=== PATIENT | female | born 2000 | race Caucasian/White ===

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

== ENCOUNTER 2019-02-21 20:39 | Inpatient (IN) ==
[2019-02-21 21:43] LABS: Basophils # (auto) 0.03 K/uL (0-0.2); Basophils % (auto) 0.4 %; Eosinophils # (auto) 0.09 K/uL (0-0.5); Eosinophils % (auto) 1.1 %; Hematocrit (blood only) 41.3 % (37-47); Hemoglobin 13.5 g/dL (12.0-16.0); Immature Granulocytes # (auto) 0.02 K/uL (0.00-0.02); Immature Granulocytes % (auto) 0.3 %; Lymphocytes # (auto) 2.17 K/uL (1.2-3.4); Lymphocytes % (auto) 27.5 %; Mean Corpuscular Hemoglobin 28.9 pg (25-34); Mean Corpuscular Hgb Conc 32.7 g/dL (32-36); Mean Corpuscular Volume 88.4 fL (80-100); Mean Platelet Volume 9.4 fL (7.4-10.4); Monocytes # (auto) 0.55 K/uL (0.11-0.59); Neutrophils # (auto) 5.04 K/uL (1.4-6.5); Neutrophils % (auto) 63.7 %; Platelet Count 247 K/uL (130-400); RDW Standard Deviation 45.5 fL (36.4-46.3); Red Blood Count 4.67 M/uL (4.2-5.4)
[2019-02-21 22:03] LABS: Alanine Aminotransferase 22 U/L (12-78); Albumin Level 4.1 gm/dl (3.4-5.0); Aspartate Aminotransferase 15 U/L (15-37); BUN Creatinine Ratio 12.4 (10-20); Blood Urea Nitrogen 11 mg/dl (7-18); Calcium 9.3 mg/dl (8.5-10.1); Carbon Dioxide 22 mmol/L (21-32); Chloride 109 mmol/L (98-107); Est GFR (African American) 106.7; Glucose 89 mg/dl (70-99); Potassium 3.7 mmol/L (3.5-5.1); Sodium 138 mmol/L (136-145)
[2019-02-21 22:08] LABS: Salicylate < 1.7 mg/dl (2.8-20)
[2019-02-21 22:09] LABS: Acetaminophen < 2 ug/ml (10-30)
[2019-02-21 22:13] LABS: Alkaline Phosphatase 132 U/L (45-117); Bilirubin,Total 0.2 mg/dl (0.2-1); Total Protein 8.1 gm/dl (6.4-8.2)
[2019-02-21 22:27] LABS: Appearance Urine Clear (Clear); Bilirubin Urine Negative (Negative); Blood Urine Negative (Negative); Color Urine Yellow; Glucose Urine UA Negative (Negative); Ketones Urine Trace (Negative); Leukocyte Esterase Urine Negative (Negative); Nitrite Urine Negative (Negative); Protein Urine Negative (Negative); Urobilinogen Urine Negative (Negative)
[2019-02-21 22:46] LABS: Amphetamines+Metham, Urine Neg (Neg); Barbiturates, Urine Neg (Neg); Benzodiazepine, Urine Neg (Neg); Cocaine, Urine Neg (Neg); MDMA (Ecstacy), Urine Neg (Neg); Methadone, Urine Neg (Neg); Opiate, Urine Neg (Neg); Phencyclidine, Urine Neg (Neg)
--- NOTE | 2019-02-21 23:07 | Emergency Department Note ---
Entered by Ladonna eJrome acting as a scribe for Gary Valiente M.D. History of Present Illness General Chief complaint: Mental Health Evaluation Stated complaint: MENTAL HEALTH EVALUATION Time Seen by Provider: 02/21/19 20:57 Source: patient History of Present Illness Onset (ago): hour(s) (today) Location: head, upper extremity and lower extremity Pain Consistency: + intermittent Quality: + other (mental health evaluation) Associated symptoms: + other (Positive SI (without a plan), anxiousness, sadness, irregular sleeping schedule, irregular eating habits. Negative HI or hallucinations) The patient is a 18 year old female who presents to the ED for a mental health evaluation. She states she has had intermittent suicidal thoughts which worsened today. She states her mood is off and she feels very sad. She notes her sleep schedule and eating habits are irregular. She reports she feels very anxious. She has not attempted to hurt herself. The patient has not thought of how she would hurt herself. She states whenever she has suicidal thoughts, she cannot focus on anything else. She sees a counselor every week and has a psychiatrist. She states she has always tried to get help in the past, but for the past 4 years she has had frequent suicidal thoughts. The patient regularly takes prozac, lamictal, and topamax. She has never had in patient treatment in the past. She denies any HI or hallucinations. Home Medications Home Medications Medication Instructions Recorded Confirmed Type fluoxetine [Prozac] 20 mg PO HS 02/21/19 02/21/19 History lamotrigine [Lamictal] 50 mg PO HS 02/21/19 02/21/19 History topiramate [Topamax] 100 mg PO HS 02/21/19 02/21/19 History Allergies Allergy/AdvReac Type Severity Reaction Status Date / Time No Known Allergies Allergy Unverified 05/12/17 18:14 Past Med/Surg History Medical History Anxiety Depression Surgical History No pertinent past surgical history Family History Other No pertinent family history in first degree relatives Social History Feels Safe at Home: Yes Smoking Status: Never smoker Review of Systems See HPI for pertinent positives & negatives. and A total of 10 systems reviewed and were otherwise negative Physical Exam Vital Signs Vital Signs - 24 hr 02/21/19 20:43 02/21/19 23:39 Temperature 36.7 C Temperature Source Oral Pulse Rate 91 H Pulse Rate [Finger] 63 Respiratory Rate 16 16 Respiratory Effort / Characteristics Non-Labored Respiratory Depth Normal Blood Pressure 118/78 Blood Pressure [Right Arm] 118/59 L Blood Pressure Mean 91 Blood Pressure Mean [Right Arm] 78 Blood Pressure Position Sitting Blood Pressure Position [Right Arm] Sitting Pulse Oximetry 100 100 Oxygen Delivery Method Room Air Room Air Sepsis Recent Fever Within 48 Hours No Sepsis New/Unexplained Change in Mental Status No Sepsis Action Taken by Nursing No Action Required GENERAL: Awake, alert, on bed anxious HENT: Normocephalic, atraumatic. EYES: Normal conjunctiva. Sclera non-icteric. RESPIRATORY: Clear to auscultation. No wheezes. Normal respiratory effort. CARDIAC: Normal rate. Normal rhythm. Extremities warm and well perfused. NEURO: Normal sensorium. No sensory or motor deficits noted. No facial droop or slurred speech. PSYCH: Flat affect. Mildly anxious. Suicidal thoughts. Denies plan. Denies hallucinations or HI. SKIN: Warm and dry. No jaundice noted. Course Course 2113: Past medical records reviewed. The patient was evaluated in room A8. A complete history and physical exam was performed. Administered Medications Medical Decision Making Differential Diagnosis Differential diagnosis: Etiologies such as mood disorder, infection, hypoglycemia, electrolyte abnormalities, cardiac sources, intracerebral event, toxicologic, neurologic, as well as others were entertained. Medical Records Attestation: I reviewed the patient's medical records. Home Medications Current Medication List: was personally reviewed by me Laboratory Data Attestation: I reviewed the patient's lab results. Result diagrams: 02/21/19 21:29 02/21/19 21:28 Lab Results 02/21/19 02/21/19 02/21/19 Range/Units 20:50 20:50 20:50 WBC (4.8-10.8) K/uL RBC (4.2-5.4) M/uL Hgb (12.0-16.0) g/dL Hct (37-47) % MCV (80-100) fL MCH (25-34) pg MCHC (32-36) g/dL RDW Std Deviation (36.4-46.3) fL RDW Coeff of Eugenie (11.5-14.5) % Plt Count (130-400) K/uL MPV (7.4-10.4) fL Immature Gran % (Auto) % Neut % (Auto) % Lymph % (Auto) % [place] % (Auto) % Eos % (Auto) % Baso % (Auto) % Immature Gran # (Auto) (0.00-0.02) K/uL Neut # (Auto) (1.4-6.5) K/uL Lymph # (Auto) (1.2-3.4) K/uL [place] # (Auto) (0.11-0.59) K/uL Eos # (Auto) (0-0.5) K/uL Baso # (Auto) (0-0.2) K/uL Sodium (136-145) mmol/L Potassium (3.5-5.1) mmol/L Chloride (98-107) mmol/L Carbon Dioxide (21-32) mmol/L Anion Gap (3-11) BUN (7-18) mg/dl Creatinine (0.6-1.2) mg/dl Est Cr Clr Drug Dosing Est GFR ( Amer) Est GFR (Non-Af Amer) BUN/Creatinine Ratio (10-20) Glucose (70-99) mg/dl Calcium (8.5-10.1) mg/dl Total Bilirubin (0.2-1) mg/dl AST (15-37) U/L ALT (12-78) U/L Alkaline Phosphatase (45-117) U/L Total Protein (6.4-8.2) gm/dl Albumin (3.4-5.0) gm/dl Globulin (2.5-4.0) gm/dl Albumin/Globulin Ratio (0.9-2) TSH (0.300-4.500) uIu/ml Urine Color Yellow Urine Appearance Clear (Clear) Urine pH 6.0 (4.5-7.5) Ur Specific [place] 1.020 (1.000-1.030) Urine Protein Negative (Negative) Urine Glucose (UA) Negative (Negative) Urine Ketones Trace H (Negative) Urine Blood Negative (Negative) Urine Nitrite Negative (Negative) Urine Bilirubin Negative (Negative) Urine Urobilinogen Negative (Negative) Ur Leukocyte Esterase Negative (Negative) POC Ur Test NEG (NEG) Salicylates (2.8-20) mg/dl Urine Opiates Screen Neg (Neg) Ur Methadone, Qual Neg (Neg) Acetaminophen (10-30) ug/ml Urine Barbiturates Neg (Neg) Ur Phencyclidine (PCP) Neg (Neg) U Amphetamin/Meth Scrn Neg (Neg) MDMA (Ecstasy) Screen Neg (Neg) U Benzodiazepines Scrn Neg (Neg) Ur Cocaine Metabolite Neg (Neg) U Marijuana (THC) Screen Neg (Neg) Ethyl Alcohol mg/dL (0-3) mg/dl 02/21/19 02/21/19 02/21/19 Range/Units 21:28 21:29 21:29 WBC 7.90 (4.8-10.8) K/uL RBC 4.67 (4.2-5.4) M/uL Hgb 13.5 (12.0-16.0) g/dL Hct 41.3 (37-47) % MCV 88.4 (80-100) fL MCH 28.9 (25-34) pg MCHC 32.7 (32-36) g/dL RDW Std Deviation 45.5 (36.4-46.3) fL RDW Coeff of Eugenie 14.0 (11.5-14.5) % Plt Count 247 (130-400) K/uL MPV 9.4 (7.4-10.4) fL Immature Gran % (Auto) 0.3 % Neut % (Auto) 63.7 % Lymph % (Auto) 27.5 % [place] % (Auto) 7.0 % Eos % (Auto) 1.1 % Baso % (Auto) 0.4 % Immature Gran # (Auto) 0.02 (0.00-0.02) K/uL Neut # (Auto) 5.04 (1.4-6.5) K/uL Lymph # (Auto) 2.17 (1.2-3.4) K/uL [place] # (Auto) 0.55 (0.11-0.59) K/uL Eos # (Auto) 0.09 (0-0.5) K/uL Baso # (Auto) 0.03 (0-0.2) K/uL Sodium 138 (136-145) mmol/L Potassium 3.7 (3.5-5.1) mmol/L Chloride 109 H (98-107) mmol/L Carbon Dioxide 22 (21-32) mmol/L Anion Gap 8.0 (3-11) BUN 11 (7-18) mg/dl Creatinine 0.90 (0.6-1.2) mg/dl Est Cr Clr Drug Dosing Not Reportable Est GFR ( Amer) 106.7 Est GFR (Non-Af Amer) 92.0 BUN/Creatinine Ratio 12.4 (10-20) Glucose 89 (70-99) mg/dl Calcium 9.3 (8.5-10.1) mg/dl Total Bilirubin 0.2 (0.2-1) mg/dl AST 15 (15-37) U/L ALT 22 (12-78) U/L Alkaline Phosphatase 132 H (45-117) U/L Total Protein 8.1 (6.4-8.2) gm/dl Albumin 4.1 (3.4-5.0) gm/dl Globulin 4.0 (2.5-4.0) gm/dl Albumin/Globulin Ratio 1.0 (0.9-2) TSH 2.100 (0.300-4.500) uIu/ml Urine Color Urine Appearance (Clear) Urine pH (4.5-7.5) Ur Specific [place] (1.000-1.030) Urine Protein (Negative) Urine Glucose (UA) (Negative) Urine Ketones (Negative) Urine Blood (Negative) Urine Nitrite (Negative) Urine Bilirubin (Negative) Urine Urobilinogen (Negative) Ur Leukocyte Esterase (Negative) POC Ur Test (NEG) Salicylates < 1.7 L (2.8-20) mg/dl Urine Opiates Screen (Neg) Ur Methadone, Qual (Neg) Acetaminophen < 2 L (10-30) ug/ml Urine Barbiturates (Neg) Ur Phencyclidine (PCP) (Neg) U Amphetamin/Meth Scrn (Neg) MDMA (Ecstasy) Screen (Neg) U Benzodiazepines Scrn (Neg) Ur Cocaine Metabolite (Neg) U Marijuana (THC) Screen (Neg) Ethyl Alcohol mg/dL (0-3) mg/dl 12/02/19 Range/Units 21:29 WBC (4.8-10.8) K/uL RBC (4.2-5.4) M/uL Hgb (12.0-16.0) g/dL Hct (37-47) % MCV (80-100) fL MCH (25-34) pg MCHC (32-36) g/dL RDW Std Deviation (36.4-46.3) fL RDW Coeff of Eugenie (11.5-14.5) % Plt Count (130-400) K/uL MPV (7.4-10.4) fL Immature Gran % (Auto) % Neut % (Auto) % Lymph % (Auto) % [place] % (Auto) % Eos % (Auto) % Baso % (Auto) % Immature Gran # (Auto) (0.00-0.02) K/uL Neut # (Auto) (1.4-6.5) K/uL Lymph # (Auto) (1.2-3.4) K/uL [place] # (Auto) (0.11-0.59) K/uL Eos # (Auto) (0-0.5) K/uL Baso # (Auto) (0-0.2) K/uL Sodium (136-145) mmol/L Potassium (3.5-5.1) mmol/L Chloride (98-107) mmol/L Carbon Dioxide (21-32) mmol/L Anion Gap (3-11) BUN (7-18) mg/dl Creatinine (0.6-1.2) mg/dl Est Cr Clr Drug Dosing Est GFR ( Amer) Est GFR (Non-Af Amer) BUN/Creatinine Ratio (10-20) Glucose (70-99) mg/dl Calcium (8.5-10.1) mg/dl Total Bilirubin (0.2-1) mg/dl AST (15-37) U/L ALT (12-78) U/L Alkaline Phosphatase (45-117) U/L Total Protein (6.4-8.2) gm/dl Albumin (3.4-5.0) gm/dl Globulin (2.5-4.0) gm/dl Albumin/Globulin Ratio (0.9-2) TSH (0.300-4.500) uIu/ml Urine Color Urine Appearance (Clear) Urine pH (4.5-7.5) Ur Specific [place] (1.000-1.030) Urine Protein (Negative) Urine Glucose (UA) (Negative) Urine Ketones (Negative) Urine Blood (Negative) Urine Nitrite (Negative) Urine Bilirubin (Negative) Urine Urobilinogen (Negative) Ur Leukocyte Esterase (Negative) POC Ur Test (NEG) Salicylates (2.8-20) mg/dl Urine Opiates Screen (Neg) Ur Methadone, Qual (Neg) Acetaminophen (10-30) ug/ml Urine Barbiturates (Neg) Ur Phencyclidine (PCP) (Neg) U Amphetamin/Meth Scrn (Neg) MDMA (Ecstasy) Screen (Neg) U Benzodiazepines Scrn (Neg) Ur Cocaine Metabolite (Neg) U Marijuana (THC) Screen (Neg) Ethyl Alcohol mg/dL < 3.0 (0-3) mg/dl Blood Pressure Blood Pressure Findings: Normal blood pressure Blood Pressure Disposition: did not require urgent referral MDM Narrative Patient is a 18-year-old female with a history of depression worsening over the last several weeks. Currently on Prozac Lamictal and Topamax. Has an outpatient counselor and psychiatrist. States she has now had some thoughts of wanting to harm her self. Denies plan or method. Denies a history of suicidal attempts. Somewhat tearful on exam in the room. Denies hallucination or HI. No real significant trigger noted. States she is been try to work through things but this seems to be falling apart. Denies significant school stress. Medical clearance was completed here without significant abnormality noted. senior facilities manager assisted with psychiatric evaluation. Patient's had worsening of her depression and hopelessness with suicidal thoughts now while having outpatient counselor and psychiatrist on multiple medications. She wished for inpatient referrals. These were made. Patient was accepted on voluntary [facility] for further inpatient care of her depression and suicidal thoughts. Evening medications given. Impression & Plan Depression, Mood disorder Discharge Plan Visit Data Chief Complaint: Mental Health Evaluation Stated Complaint: MENTAL HEALTH EVALUATION ED Provider: Gary Valiente Discharge Problem: Depression, Mood disorder Forms Stand Alone Forms: My [facility], Suicide Prevention Resources Prescriptions Prescriptions: No Action lamotrigine [Lamictal] 25 mg Tablet 50 mg PO HS RF: 0 topiramate [Topamax] 100 mg Tablet 100 mg PO HS RF: 0 fluoxetine [Prozac] 20 mg Capsule 20 mg PO HS RF: 0 Discharge Problem: Depression Qualifiers: Depression Type: major depressive disorder Major depression recurrence: recurrent Active/Remission status: currently active Major depression episode severity: unspecified Qualified Code(s): F33.9 - Major depressive disorder, recurrent, unspecified The scribe's documentation has been prepared under my direction and personally reviewed by me in its entirety. I confirm that the note above accurately reflects all work, treatment, procedures, and medical decision making performed by me.
[2019-02-22] MEDS ORDERED: ALUMINUM/MAGNESIUM SUSP 30 ML UDC PO PRN (01:20)
[2019-02-22] MEDS ORDERED: BISMUTH SUBSALICYLATE PER ML OMNICELL CHARGE PO PRN (01:20)
[2019-02-22] MEDS ORDERED: lamoTRIgine 25 MG TAB PO SCH (01:20)
[2019-02-22] MEDS ORDERED: MAGNESIUM HYDROXIDE SUSP 30 ML UDC PO PRN (01:20)
[2019-02-22] MEDS ORDERED: SODIUM CHLORIDE 0.65% NA SOLN 45 ML (OCEAN) PRN (01:20)
[2019-02-22] MEDS: FLUOXETINE HCL 20 MG CAP PO SCH ×2 (01:51→21:40)
[2019-02-22] MEDS: TOPIRAMATE 100 MG TAB PO SCH ×2 (01:51→21:40)
[2019-02-22] MEDS: ACETAMINOPHEN 325 MG TAB PO PRN (02:52)
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
[2019-02-22] MEDS: LURASIDONE HCL 40 MG TAB PO SCH (17:35)
[2019-02-23 08:13] LABS: Glucose Fasting 96 mg/dl (70-99)
[2019-02-23 08:25] LABS: Chol HDL Ratio 6; Cholesterol 211 mg/dl (0-200); HDL Cholesterol 33 mg/dl; LDL Cholesterol Calculated 131 mg/dl; Triglycerides 236 mg/dl (0-150); VLDL Cholesterol 47 mg/dl
--- NOTE | 2019-02-23 14:42 | Psychiatric Progress Note ---
Date of Service February 23, 2019 Impression / Recommendations (1) Bipolar 2 disorder: 02/22 - Patient reports lamotrigine has been ineffective for bipolar depression (although has helped to stabilize mood), and has worsened headaches, which are daily and debilitating. She would like to discontinue it and switch to a different mood stabilizer which is reasonable: reviewed options including retrial of quetiapine, lurasidone, or lithium, or olanzapine (with fluoxetine) to target bipolar depression. Reviewed risks, benefits, and side effects of each. She wants to avoid weight gain d/t h/o problems with body image so declined olanzapine. She also wants to avoid sedation which was problematic with quetiapine, and ultimately agreed to a trial of lurasidone. Will start 20mg daily and monitor for side effects including vertigo and akathisia. She may require a slower titration due to her history of sensitivity to medication side effects. -Fasting lipid profile and glucose ordered for tomorrow morning for baseline on an atypical antipsychotic. -Patient reports she had gained a significant amount of weight on aripiprazole, and has lost 15 pounds over the past several months. Current BMI 28.7. Continue to provide information about importance of healthy diet and regular physical activity for healthy weight maintenance. -Continue fluoxetine 20 mg daily. -Coordinate care with outpatient psychiatrist and therapist. -Involve patient in groups and therapy, work on healthy coping skills and discharge safety plan. -Coordinate with the [facility]. -Family meeting with parents. 02/23 - Continue current medication regimen as above; reviewed option to taper topiramate given lurasidone has been added - patient reports desire to continue at 100mg as it is effective for "binge eating", even if ineffective for management of headaches and is not an ideal mood stabilization agent - Family meeting with mother scheduled for tomorrow afternoon - Fasting glucose and lipid panel reviewed with patient; triglycerides elevated at 235, total cholesterol elevated at 211 (2) Anxiety: 02/22 -continue SSRI as above. Offer hydroxyzine as needed for severe anxiety. Work on behavioral techniques for managing anxiety. (3) Headache: 02/22 -acetaminophen as needed for headaches.l -Continue topiramate for now, but consider tapering off as patient reports it has been ineffective for headaches and mood, and could be worsening functioning due to tendency to impair focus. 02/23 - Reporting worsened headache today; patient perceives due to medication changes - Admits topiramate is ineffective for headaches, but requests to continue medication as it has reportedly been helpful for over-eating tendencies ("binge eating") Inventory Assets Strengths: Intelligence, good supports, actively engaged in outpatient treatment. 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 Chief Complaint "I'm feeling a little better, I guess." Review of Systems Notes Constitutional: reports worsened headache this morning Cardiovascular: denied Respiratory: denied Gastrointestinal: denied Neurological: denied Psychiatric: denies symptoms other than stated above Total of at least 10 systems reviewed, pertinent positives as above and in HPI. Sleep Information Total Hours of Sleep: 7 Meal Information Percent Meal Consumed - Breakfast: 100 Percent Meal Consumed - Lunch: 100 Percent Meal Consumed - Dinner: 75 Subjective Subjective Patient was seen & assessed and interval progress reviewed with treatment team. Staff reports the patient rated her mood a 5-6/10 and "numb" last evening. She had reported that suicidality was chronic, but worsened around time of admission. Pt is scheduled for a family meeting with her mother tomorrow afternoon. Pt was seen today to assess progress since admission. She states she is feeling "a little better", but reports a "really bad headache." She states sleep was improved last evening, but is feeling a bit more groggy today. Pt is agreeable with reviewing medication regimen and potential side effects. We reviewed her history with topiramate, which she states she had been prescribed for migraine prophylaxis, mood stabilization, and "binge eating". She admits it has not been overly effective for mood and migraines, but when asked about tapering she declined - stating "it was really helpful with my binge eating, I already cut it back from 200." Pt states that her SI is "a lot better", and today is denying active SI and intent to harm self. She states she has benefitted from the structure and routine on the unit, and is hoping to implement some similar changes outside of the hosptial as well. Physical Exam Psychiatric Orientation: alert, oriented x 3 and cooperative (but timid and shy) Apperance: appropriately dressed, appropriately groomed and appeared stated age Eye Contact: good eye contact Motor Behavior: steady gait and station and no abnormal motor movements Speech: normal rate/rhythm/volume of speech Affect: + depressed affect, + blunted affect and mood congruent with affect Mood: + depressed mood ("a little better") Thought Process: goal directed thought process, clear/coherent thought process and thought association intact Thought Content: reality based without delusions; no hopelessness and no worthlessness Suicidal Thoughts: denies suicidal thoughts (admits to history of chronic SI, denies active thoughts) and denies suicidal intent "A lot better" Homicidal Thoughts: denies homicidal thoughts Hallucinations: no auditory hallucinations and no visual hallucinations Cognition: attention grossly intact and language grossly intact Insight: + fair insight Judgement: + fair judgement Vital Signs (Past 24 Hours) Last Vital Signs Temp 36.4 C L 02/23/19 06:48 Pulse 90 02/23/19 06:49 Resp 18 02/23/19 06:48 BP 96/61 L 02/23/19 06:49 Pulse Ox 100 02/22/19 02:15 Results & Data Laboratory Results Laboratory Results - last 24 hr 02/23/19 07:27 Fasting Glucose 96 Triglycerides 236 H Cholesterol 211 H LDL Cholesterol, Calc 131 VLDL Cholesterol, Calc 47 HDL Cholesterol 33 Cholesterol/HDL Ratio 6 Current Inpatient Medications Current Inpatient Medications: Current Inpatient Medications Acetaminophen (Tylenol) 650 mg PO Q4H PRN PRN Reason: Headache or Minor Fever Stop: 03/24/19 01:19 Last Admin: 02/22/19 02:52 Dose: 650 mg Documented by: Al Hydrox/Mg Hydrox/Simethicone (Maalox) 30 ml PO Q4H PRN PRN Reason: GI Upset Stop: 03/24/19 01:19 Bismuth Subsalicylate (Kaopectate) 15 ml PO PRN PRN PRN Reason: Loose Stool Stop: 01/02/20 01:19 Fluoxetine HCl (Prozac) 20 mg PO HS DANIELLE Stop: 03/24/19 01:19 Last Admin: 02/22/19 21:40 Dose: 20 mg Documented by: Hydroxyzine HCl (Vistaril) 50 mg PO HSZ PRN PRN Reason: Insomnia Stop: 03/24/19 01:19 Last Admin: 02/22/19 02:55 Dose: 50 mg Documented by: Hydroxyzine HCl (Vistaril) 25 mg PO Q4H PRN PRN Reason: Anxiety Stop: 03/24/19 01:19 Lurasidone HCl (Latuda) 20 mg PO QDD DANIELLE Stop: 03/24/19 17:44 Last Admin: 02/22/19 17:35 Dose: 20 mg Documented by: Magnesium Hydroxide (Milk Of Magnesia) 30 ml PO DAILY PRN PRN Reason: Constipation Stop: 03/24/19 01:19 Sodium Chloride ([place] Nasal) 1 - 2 sprays NA PRN PRN PRN Reason: Nasal Dryness/Congestion Stop: 03/24/19 01:19 Topiramate (Topamax) 100 mg PO HS DANIELLE Stop: 03/24/19 01:19 Last Admin: 02/22/19 21:40 Dose: 100 mg Documented by: Mental Health & Subst Abuse Tx Therapist Name of Therapist: [facility] (every at 6pm) Date of Therapist Appointment: 02/24/19 Taproom Attendant Name of Taproom Attendant: Denies/None Post Discharge Appointments Primary Care Physician Name Of Family Doctor: Siva
[2019-02-23] MEDS: ACETAMINOPHEN 325 MG TAB PO PRN (16:55)
[2019-02-23] MEDS: LURASIDONE HCL 40 MG TAB PO SCH (17:23)
[2019-02-23] MEDS ORDERED: IBUPROFEN 200 MG TAB PO PRN (20:53)
[2019-02-23] MEDS: TOPIRAMATE 100 MG TAB PO SCH (20:55)
[2019-02-23] MEDS: FLUOXETINE HCL 20 MG CAP PO SCH (20:55)
[2019-02-24] MEDS: ACETAMINOPHEN 325 MG TAB PO PRN (08:34)
--- NOTE | 2019-02-24 09:33 | Psychiatric Progress Note ---
Date of Service February 24, 2019 Impression / Recommendations (1) Bipolar 2 disorder: 02/22 - Patient reports lamotrigine has been ineffective for bipolar depression (although has helped to stabilize mood), and has worsened headaches, which are daily and debilitating. She would like to discontinue it and switch to a different mood stabilizer which is reasonable: reviewed options including retrial of quetiapine, lurasidone, or lithium, or olanzapine (with fluoxetine) to target bipolar depression. Reviewed risks, benefits, and side effects of each. She wants to avoid weight gain d/t h/o problems with body image so declined olanzapine. She also wants to avoid sedation which was problematic with quetiapine, and ultimately agreed to a trial of lurasidone. Will start 20mg daily and monitor for side effects including vertigo and akathisia. She may require a slower titration due to her history of sensitivity to medication side effects. -Fasting lipid profile and glucose ordered for tomorrow morning for baseline on an atypical antipsychotic. -Patient reports she had gained a significant amount of weight on aripiprazole, and has lost 15 pounds over the past several months. Current BMI 28.7. Continue to provide information about importance of healthy diet and regular physical activity for healthy weight maintenance. -Continue fluoxetine 20 mg daily. -Coordinate care with outpatient psychiatrist and therapist. -Involve patient in groups and therapy, work on healthy coping skills and discharge safety plan. -Coordinate with the [facility]. -Family meeting with parents. 02/23 - Continue current medication regimen as above; reviewed option to taper topiramate given lurasidone has been added - patient reports desire to continue at 100mg as it is effective for "binge eating", even if ineffective for management of headaches and is not an ideal mood stabilization agent - Family meeting with mother scheduled for tomorrow afternoon - Fasting glucose and lipid panel reviewed with patient; triglycerides elevated at 235, total cholesterol elevated at 211 02/24 - Continue current medication regimen. Patient concerned headaches may be a side effect to medication adjustments. Reviewed expectation that the symptoms will improve as she remains on the medication. Patient encouraged to keep staff updated with physical concerns, though reviewed that there may be causes aside from medication reactions - Family meeting with mother scheduled for this afternoon, patient stating she is "excited" -Continue to encourage group and recreational programming, in order to develop healthy and effective coping strategies. (2) Anxiety: 02/22 -continue SSRI as above. Offer hydroxyzine as needed for severe anxiety. Work on behavioral techniques for managing anxiety. (3) Headache: 02/22 -acetaminophen as needed for headaches.l -Continue topiramate for now, but consider tapering off as patient reports it has been ineffective for headaches and mood, and could be worsening functioning due to tendency to impair focus. 02/23 - Reporting worsened headache today; patient perceives due to medication changes - Admits topiramate is ineffective for headaches, but requests to continue medication as it has reportedly been helpful for over-eating tendencies ("binge eating") 02/24 - Continues to report headaches, worsened this morning but responded to acetaminophen Inventory Assets Strengths: Intelligence, good supports, actively engaged in outpatient treatment. 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 Chief Complaint "I still had a pretty bad headache this morning." Review of Systems Notes Constitutional: reports improvement in headache since taking Tylenol; reports feeling groggy this morning Cardiovascular: denied Respiratory: denied Gastrointestinal: denied Neurological: denied Psychiatric: denies symptoms other than stated above Total of at least 10 systems reviewed, pertinent positives as above and in HPI. Sleep Information Total Hours of Sleep: 8.25 Meal Information Percent Meal Consumed - Breakfast: 100 Percent Meal Consumed - Lunch: 100 Percent Meal Consumed - Dinner: 75 Subjective Subjective Patient was seen & assessed and interval progress reviewed with nursing and social work. Staff report the patient appeared more depressed last evening. It is stated she provided insightful comments during group therapy yesterday afternoon. Patient is scheduled for a family meeting with her mother this afternoon. Patient was seen today to assess progress since admission. She informs this provider "I still had a pretty bad headache this morning." Patient states that she awoke from sleep with a painful headache, which reportedly responded to combination of acetaminophen and a shower. Patient admits to dull headache presently, but states it is much improved. We reviewed common side effects with medication adjustments, and patient was encouraged to continue to inform staff about physical concerns. We also reviewed that the symptoms may be unrelated to medication adjustments as well. Patient does believe that her symptoms are "getting a little better." She admits that the mornings are generally difficult for her, as "I have little motivation to get out of bed, it is pretty hard for me to stay up during the day." Patient does admit that the structure on the unit has been beneficial for her. 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 She states that is much as the semester has been difficult, she appreciates being able to "learn a lot about myself" during her classes. Patient says that her dislike towards school is related to specific classes, not necessarily her major in general. She is observed to brighten when she talks about her passion for psychology and music. Patient denies acute suicidal ideation, but continues to verbalize periods of hopelessness. She remains unable to contract for safety outside of the hospital at this time. She denies other needs or concerns presently. Physical Exam Psychiatric Orientation: alert, oriented x 3 and cooperative (And pleasant, less timid today) Apperance: appropriately dressed, appropriately groomed and appeared stated age Eye Contact: good eye contact Motor Behavior: steady gait and station and no abnormal motor movements Speech: normal rate/rhythm/volume of speech Affect: + blunted affect (Brightens only when talking about her major) Mood: + depressed mood ("A little bit better") and + anxious mood Thought Process: goal directed thought process, clear/coherent thought process and thought association intact Thought Content: reality based without delusions and + hopelessness (Admits to improvement overall) Suicidal Thoughts: denies suicidal thoughts (Denies active suicidal ideation) and denies suicidal intent Homicidal Thoughts: denies homicidal thoughts Hallucinations: no auditory hallucinations and no visual hallucinations Cognition: attention grossly intact and language grossly intact Insight: + fair insight Judgement: + fair judgement Vital Signs (Past 24 Hours) Last Vital Signs Temp 36.7 C 02/24/19 07:06 Pulse 91 H 02/24/19 07:06 Resp 16 02/24/19 07:06 BP 106/71 02/24/19 07:06 Pulse Ox 100 02/22/19 02:15 Results & Data Current Inpatient Medications Current Inpatient Medications: Current Inpatient Medications Acetaminophen (Tylenol) 650 mg PO Q4H PRN PRN Reason: Headache or Minor Fever Stop: 03/24/19 01:19 Last Admin: 02/24/19 08:34 Dose: 650 mg Documented by: Al Hydrox/Mg Hydrox/Simethicone (Maalox) 30 ml PO Q4H PRN PRN Reason: GI Upset Stop: 03/24/19 01:19 Bismuth Subsalicylate (Kaopectate) 15 ml PO PRN PRN PRN Reason: Loose Stool Stop: 03/24/19 01:19 Fluoxetine HCl (Prozac) 20 mg PO HS DANIELLE Stop: 03/24/19 01:19 Last Admin: 02/23/19 20:55 Dose: 20 mg Documented by: Hydroxyzine HCl (Vistaril) 50 mg PO HSZ PRN PRN Reason: Insomnia Stop: 03/24/19 01:19 Last Admin: 02/22/19 02:55 Dose: 50 mg Documented by: Hydroxyzine HCl (Vistaril) 25 mg PO Q4H PRN PRN Reason: Anxiety Stop: 03/24/19 01:19 Ibuprofen (Advil) 400 mg PO QID PRN PRN Reason: Headache or Pain Stop: 03/25/19 20:52 Lurasidone HCl (Latuda) 20 mg PO QDD DANIELLE Stop: 03/24/19 17:44 Last Admin: 02/23/19 17:23 Dose: 20 mg Documented by: Magnesium Hydroxide (Milk Of Magnesia) 30 ml PO DAILY PRN PRN Reason: Constipation Stop: 03/24/19 01:19 Sodium Chloride ([place] Nasal) 1 - 2 sprays NA PRN PRN PRN Reason: Nasal Dryness/Congestion Stop: 03/24/19 01:19 Topiramate (Topamax) 100 mg PO HS DANIELLE Stop: 03/24/19 01:19 Last Admin: 02/23/19 20:55 Dose: 100 mg Documented by: Mental Health & Subst Abuse Tx Therapist Name of Therapist: [facility] (every at 6pm) Date of Therapist Appointment: 02/24/19 4Th Grade Teacher Name of 4Th Grade Teacher: Denies/None Post Discharge Appointments Primary Care Physician Name Of Family Doctor: ROSEMARY
[2019-02-24] MEDS: LURASIDONE HCL 40 MG TAB PO SCH (17:32)
[2019-02-24] MEDS: FLUOXETINE HCL 20 MG CAP PO SCH (21:22)
[2019-02-24] MEDS: TOPIRAMATE 100 MG TAB PO SCH (21:22)
--- NOTE | 2019-02-25 09:51 | Psychiatric Progress Note ---
Date of Service February 25, 2019 Impression / Recommendations (1) Bipolar 2 disorder: 02/22 - Patient reports lamotrigine has been ineffective for bipolar depression (although has helped to stabilize mood), and has worsened headaches, which are daily and debilitating. She would like to discontinue it and switch to a different mood stabilizer which is reasonable: reviewed options including retrial of quetiapine, lurasidone, or lithium, or olanzapine (with fluoxetine) to target bipolar depression. Reviewed risks, benefits, and side effects of each. She wants to avoid weight gain d/t h/o problems with body image so declined olanzapine. She also wants to avoid sedation which was problematic with quetiapine, and ultimately agreed to a trial of lurasidone. Will start 20mg daily and monitor for side effects including vertigo and akathisia. She may require a slower titration due to her history of sensitivity to medication side effects. -Fasting lipid profile and glucose ordered for tomorrow morning for baseline on an atypical antipsychotic. -Patient reports she had gained a significant amount of weight on aripiprazole, and has lost 15 pounds over the past several months. Current BMI 28.7. Continue to provide information about importance of healthy diet and regular physical activity for healthy weight maintenance. -Continue fluoxetine 20 mg daily. -Coordinate care with outpatient psychiatrist and therapist. -Involve patient in groups and therapy, work on healthy coping skills and discharge safety plan. -Coordinate with the [place]. -Family meeting with parents. 02/23 - Continue current medication regimen as above; reviewed option to taper topiramate given lurasidone has been added - patient reports desire to continue at 100mg as it is effective for "binge eating", even if ineffective for management of headaches and is not an ideal mood stabilization agent - Family meeting with mother scheduled for tomorrow afternoon - Fasting glucose and lipid panel reviewed with patient; triglycerides elevated at 235, total cholesterol elevated at 211 02/24 - Continue current medication regimen. Patient concerned headaches may be a side effect to medication adjustments. Reviewed expectation that the symptoms will improve as she remains on the medication. Patient encouraged to keep staff updated with physical concerns, though reviewed that there may be causes aside from medication reactions - Family meeting with mother scheduled for this afternoon, patient stating she is "excited" -Continue to encourage group and recreational programming, in order to develop healthy and effective coping strategies. 02/25 - Continue current medication regimen - Attempting to schedule aftercare appointments at home, as patient is considering deferring assignments and returning home for the remainder of the semester - Continue to encourage participation in group and recreational programming (2) Anxiety: 02/22 -continue SSRI as above. Offer hydroxyzine as needed for severe anxiety. Work on behavioral techniques for managing anxiety. (3) Headache: 02/22 -acetaminophen as needed for headaches.l -Continue topiramate for now, but consider tapering off as patient reports it has been ineffective for headaches and mood, and could be worsening functioning due to tendency to impair focus. 02/23 - Reporting worsened headache today; patient perceives due to medication changes - Admits topiramate is ineffective for headaches, but requests to continue medication as it has reportedly been helpful for over-eating tendencies ("binge eating") 02/24 - Continues to report headaches, worsened this morning but responded to acetaminophen Inventory Assets Strengths: Intelligence, good supports, actively engaged in outpatient treatment. 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 Chief Complaint "Yeah, we talked on the phone, I'm planning to defer assignments for the semester." Review of Systems Notes Constitutional: denied Cardiovascular: denied Respiratory: denied Gastrointestinal: denied Neurological: denied Psychiatric: denies symptoms other than stated above Total of at least 10 systems reviewed, pertinent positives as above and in HPI. Sleep Information Total Hours of Sleep: 5.75 Sleep Comments: awakened when her roomate was awakened at 0300 and 0530 Meal Information Percent Meal Consumed - Breakfast: 100 Percent Meal Consumed - Lunch: 100 Percent Meal Consumed - Dinner: 100 Subjective Subjective Patient was seen & assessed and interval progress reviewed with treatment team. Staff reports the patient continues to be interactive in groups. Pt had productive family meeting with mother, but still requires aftercare services based on location after discharge. Patient was seen today to assess progress since admission. Patient was seen today to assess progress since admission. She states she is doing well, and is happy they were able to discuss her academic status. She states she is planning to defer assignments for the semester and catch up on work over the break. She reports feeling "really good" about this plan. Pt updates this provider about the meeting with her mother yesterday. She states that they had arranged for daily "check-ins" which would allow for a text or phone call at the same time each day. Pt feels this will help to have someone additional monitoring her mood. We discussed that the expectation for daily conversations can also help us feel less guilt regarding asking for help when we feel we need it. Pt agreed with this idea, as she states she often feels like she is inconveniencing people by asking for help or talking about her stressors. Patient reports resolution of SI, and denies other needs or concerns presently. She reports feeling comfortable with discharge in the near future. Physical Exam Psychiatric Orientation: alert, oriented x 3 and cooperative (and pleasant) Apperance: appropriately dressed, appropriately groomed and appeared stated age Eye Contact: good eye contact Motor Behavior: steady gait and station and no abnormal motor movements Speech: normal rate/rhythm/volume of speech Affect: euthymic affect and mood congruent with affect Mood: no depressed mood ("a lot better" and "I'm feeling really good about this plan") Thought Process: goal directed thought process and clear/coherent thought process Thought Content: reality based without delusions; no hopelessness Suicidal Thoughts: denies suicidal thoughts and denies suicidal intent Homicidal Thoughts: denies homicidal thoughts Hallucinations: no auditory hallucinations and no visual hallucinations Cognition: attention grossly intact and language grossly intact Insight: good insight Judgement: good judgement Vital Signs (Past 24 Hours) Last Vital Signs Temp 36.6 C 02/25/19 06:26 Pulse 84 02/25/19 06:27 Resp 16 02/25/19 06:26 BP 77/56 L 02/25/19 06:27 Pulse Ox 100 02/22/19 02:15 Results & Data Current Inpatient Medications Current Inpatient Medications: Current Inpatient Medications Acetaminophen (Tylenol) 650 mg PO Q4H PRN PRN Reason: Headache or Minor Fever Stop: 03/24/19 01:19 Last Admin: 02/24/19 08:34 Dose: 650 mg Documented by: Al Hydrox/Mg Hydrox/Simethicone (Maalox) 30 ml PO Q4H PRN PRN Reason: GI Upset Stop: 03/24/19 01:19 Bismuth Subsalicylate (Kaopectate) 15 ml PO PRN PRN PRN Reason: Loose Stool Stop: 03/24/19 01:19 Fluoxetine HCl (Prozac) 20 mg PO HS DANIELLE Stop: 03/24/19 01:19 Last Admin: 02/24/19 21:22 Dose: 20 mg Documented by: Hydroxyzine HCl (Vistaril) 50 mg PO HSZ PRN PRN Reason: Insomnia Stop: 03/24/19 01:19 Last Admin: 02/22/19 02:55 Dose: 50 mg Documented by: Hydroxyzine HCl (Vistaril) 25 mg PO Q4H PRN PRN Reason: Anxiety Stop: 03/24/19 01:19 Ibuprofen (Advil) 400 mg PO QID PRN PRN Reason: Headache or Pain Stop: 03/25/19 20:52 Lurasidone HCl (Latuda) 20 mg PO QDD DANIELLE Stop: 03/24/19 17:44 Last Admin: 02/24/19 17:32 Dose: 20 mg Documented by: Magnesium Hydroxide (Milk Of Magnesia) 30 ml PO DAILY PRN PRN Reason: Constipation Stop: 03/24/19 01:19 Sodium Chloride ([place] Nasal) 1 - 2 sprays NA PRN PRN PRN Reason: Nasal Dryness/Congestion Stop: 03/24/19 01:19 Topiramate (Topamax) 100 mg PO HS DANIELLE Stop: 03/24/19 01:19 Last Admin: 02/24/19 21:22 Dose: 100 mg Documented by: Mental Health & Subst Abuse Tx Therapist Name of Therapist: [facility] (every at 6pm) Date of Therapist Appointment: 02/24/19 Women Specialist Name of Women Specialist: Denies/None Post Discharge Appointments Primary Care Physician Name Of Family Doctor: [facility]
[2019-02-25] MEDS: ACETAMINOPHEN 325 MG TAB PO PRN (17:12)
[2019-02-25] MEDS: LURASIDONE HCL 40 MG TAB PO SCH (18:02)
[2019-02-25] MEDS: FLUOXETINE HCL 20 MG CAP PO SCH (21:41)
[2019-02-25] MEDS: TOPIRAMATE 100 MG TAB PO SCH (21:41)
--- NOTE | 2019-02-26 09:46 | Discharge Summary ---
Date of Service February 26, 2019 History of Present Illness per admitting physician: Patient presented to the ER 02/21/19 reporting worsening mood, anxiety and suicidal thoughts. On my assessment, she reports struggling with mental health problems since age 14. Mood has been worsening throughout the fall semester, with increased irritability, suicidal ideation, and anxiety. She decided to come to the hospital yesterday as she felt "I couldn't manage it on my own anymore." She felt overwhelmed and "I feel really suicidal all the time." She doesn't think her medications are working, and states she's "trying to do the medications on my own," and feels her psychiatrist locally "isn't helping, it's informal and by email." She also has a psychiatrist at home who "didn't really make me feel like I was heard, james made me feel hopeless." She had gone off of lamotrigine in Oct. as she thought it was causing headaches, but went back on it in Jan. as her mood was more unstable and "I couldn't take the ups and downs," and she wanted something weight neutral. She reports daily headaches, "like a drill going through my head." She reports seeing a neurologist in [place] in the past who "didn't know what the cause was," but states the headaches resolve when she is not taking lamotrigine. She also takes topiramate for both headache and mood, but doesn't think it helps. She reports a history of 3-4 days of elevated mood, where she went out with friends to a constitution party and "got crazy, smoked a bunch of weed and got paranoid, was the life of the constitution party, then got paranoid and ran out of the constitution party and back to my dorm" (which is out of character, doesn't usually drink or smoke pot), racing thoughts, inability to focus, inability to sleep, excessive energy, and increase in goal directed activity. Her friends would notice the change in her as well. After 3- 4 days, mood would abruptly switch to depressed with suicidal thoughts, "I just wanted to ." She states mood alternated between these two states for "months, and it was so uncomfortable." She reports mood has been "mostly depressed and lethargic" for the past few weeks, exacerbated by interpersonal interactions, which she refers to as "borderline PTSD stuff." She is crying more often, endorses helplessness, hopelessness, difficulty making decisions, poor concentration, and social withdrawal. Sleep has been erratic, either unable to sleep, or sleeps all day. Reports history of overeating, but lately has been eating less (2 meals a day and snacks, and has lost 15lbs in a few months). She endorses daily SI with thoughts that "it's not worth it, shouldn't be here, shouldn't even try." H/o developing plans as a teenager, but not recently, as "I know it's stupid, this feeling always ends, but then it always comes back, and it's just a shitty cycle." Anxiety has increased, is present daily, with rumination, excessive worry, and fear of going crazy. Reports PTSD symptoms including increased anxiety with exposure to certain smells or interactions. States school is a stressor, and has been struggling to keep up with school work. Typically gets all As and has a 3.9 GPA, but has 2 Bs and a C, "which for me is horrible." Notes she is "really hard on myself," but is very unhappy with her grades and doesn't feel able to continue the semester, "but I keep going because I have to." Notes she took two semesters off from [employer] last year to move home and get treatment for POTS, and attended a community college. Denies psychotic symptoms, current eating disorder symptoms, and OCD. Symptoms alleviated by "getting sleep, being around people, having a consistent schedule." Exacerbated by social media and spending time on her phone, which worsens how she feels and "takes up too much time." Reports fluoxetine was started in the spring. Physical Exam Mental Examination see admission H&P and day of discharge assessment. Vital Signs (Past 24 Hours) Last Vital Signs Temp 36.6 C 02/26/19 06:40 Pulse 92 H 02/26/19 06:40 Resp 18 02/26/19 06:40 BP 109/73 02/26/19 06:40 Pulse Ox 100 02/22/19 02:15 Principal Diagnosis bipolar II disorder Psychiatric Data see daily care summary, safety maintained on inpatient unit, lurasidone was added to address mood. She decided to defer her class grades and drive home to [place] with family support for the holiday and a letter of support was given for [facility]. Day of Discharge Assessment The patient presented as alert and cooperative. The patient was casually dressed and groomed. Eye contact was fair. No psychomotor restlessness or agitation was noted. Speech was normal in rate, rhythm, and volume. Affect was mood congruent. The patients mood appeared euthymic. Thought processes were clear, coherent and goal directed without evidence of loose associations or flight of ideas. Thought content/perception was reality based without delusions. The patient denied suicidal and homicidal ideation. The patient denied hallucinations and did not appear to be responding to internal stimuli. Cognition was grossly intact with orientation to person, place and time. Fund of Knowledge/Intelligence were consistent with level of education. Insight and Judgement were good and she verbalized safety plan and readiness for discharge. Transition of Care Transition Of Care Record: was reviewed with the patient Advance Directives Advance Directives Information Provided: Yes Advance Directives: No Mental Health Advance Directive: No Advance Directives on File: No Living Will: No Power of Stacker: No Advance Directives Reason:: Declines as Mental Health Visit. Risk Factors Assessment Male: No : Yes Do You Have Access To A Gun?: No Health Problems: Yes Mental Health Diagnoses: Yes Substance Use Disorders: No Previous Attempt: No Family History of Suicide: Yes Previous Psychiatric Hospitalization: No Hopelessness: Yes Smoker: No Protective Factors Assessment : No Responsible for Young Children: No Employed: No Stable Relationships: Yes Supportive Family: Yes Good Rapport with Provider: Yes Tobacco Cessation at Discharge Tobacco Cessation Medication Prescribed at Discharge: Not Applicable/Non-Smoker Total Time Total Time Spent: Greater Than 30 Minutes Discharge Data Lab Results 02/21/19 02/21/19 02/21/19 20:50 20:50 20:50 WBC RBC Hgb Hct MCV MCH MCHC RDW Std Deviation RDW Coeff of Eugenie Plt Count MPV Immature Gran % (Auto) Neut % (Auto) Lymph % (Auto) Schleicher % (Auto) Eos % (Auto) Baso % (Auto) Immature Gran # (Auto) Neut # (Auto) Lymph # (Auto) Schleicher # (Auto) Eos # (Auto) Baso # (Auto) Sodium Potassium Chloride Carbon Dioxide Anion Gap BUN Creatinine Est Cr Clr Drug Dosing Est GFR ( Amer) Est GFR (Non-Af Amer) BUN/Creatinine Ratio Glucose Fasting Glucose Calcium Total Bilirubin AST ALT Alkaline Phosphatase Total Protein Albumin Globulin Albumin/Globulin Ratio Triglycerides Cholesterol LDL Cholesterol, Calc VLDL Cholesterol, Calc HDL Cholesterol Cholesterol/HDL Ratio TSH Urine Color Yellow Urine Appearance Clear Urine pH 6.0 Ur Specific [place] 1.020 Urine Protein Negative Urine Glucose (UA) Negative Urine Ketones Trace H Urine Blood Negative Urine Nitrite Negative Urine Bilirubin Negative Urine Urobilinogen Negative Ur Leukocyte Esterase Negative POC Ur Test NEG Salicylates Urine Opiates Screen Neg Ur Methadone, Qual Neg Acetaminophen Urine Barbiturates Neg Lamotrigine Ur Phencyclidine (PCP) Neg U Amphetamin/Meth Scrn Neg MDMA (Ecstasy) Screen Neg U Benzodiazepines Scrn Neg Ur Cocaine Metabolite Neg U Marijuana (THC) Screen Neg Ethyl Alcohol mg/dL 02/21/19 02/21/19 02/21/19 21:28 21:29 21:29 WBC 7.90 RBC 4.67 Hgb 13.5 Hct 41.3 MCV 88.4 MCH 28.9 MCHC 32.7 RDW Std Deviation 45.5 RDW Coeff of Eugenie 14.0 Plt Count 247 MPV 9.4 Immature Gran % (Auto) 0.3 Neut % (Auto) 63.7 Lymph % (Auto) 27.5 Schleicher % (Auto) 7.0 Eos % (Auto) 1.1 Baso % (Auto) 0.4 Immature Gran # (Auto) 0.02 Neut # (Auto) 5.04 Lymph # (Auto) 2.17 Schleicher # (Auto) 0.55 Eos # (Auto) 0.09 Baso # (Auto) 0.03 Sodium 138 Potassium 3.7 Chloride 109 H Carbon Dioxide 22 Anion Gap 8.0 BUN 11 Creatinine 0.90 Est Cr Clr Drug Dosing Not Reportable Est GFR ( Amer) 106.7 Est GFR (Non-Af Amer) 92.0 BUN/Creatinine Ratio 12.4 Glucose 89 Fasting Glucose Calcium 9.3 Total Bilirubin 0.2 AST 15 ALT 22 Alkaline Phosphatase 132 H Total Protein 8.1 Albumin 4.1 Globulin 4.0 Albumin/Globulin Ratio 1.0 Triglycerides Cholesterol LDL Cholesterol, Calc VLDL Cholesterol, Calc HDL Cholesterol Cholesterol/HDL Ratio TSH 2.100 Urine Color Urine Appearance Urine pH Ur Specific [place] Urine Protein Urine Glucose (UA) Urine Ketones Urine Blood Urine Nitrite Urine Bilirubin Urine Urobilinogen Ur Leukocyte Esterase POC Ur Test Salicylates < 1.7 L Urine Opiates Screen Ur Methadone, Qual Acetaminophen < 2 L Urine Barbiturates Lamotrigine Ur Phencyclidine (PCP) U Amphetamin/Meth Scrn MDMA (Ecstasy) Screen U Benzodiazepines Scrn Ur Cocaine Metabolite U Marijuana (THC) Screen Ethyl Alcohol mg/dL 02/21/19 02/21/19 02/23/19 21:29 21:29 07:27 WBC RBC Hgb Hct MCV MCH MCHC RDW Std Deviation RDW Coeff of Eugenie Plt Count MPV Immature Gran % (Auto) Neut % (Auto) Lymph % (Auto) Schleicher % (Auto) Eos % (Auto) Baso % (Auto) Immature Gran # (Auto) Neut # (Auto) Lymph # (Auto) Schleicher # (Auto) Eos # (Auto) Baso # (Auto) Sodium Potassium Chloride Carbon Dioxide Anion Gap BUN Creatinine Est Cr Clr Drug Dosing Est GFR ( Amer) Est GFR (Non-Af Amer) BUN/Creatinine Ratio Glucose Fasting Glucose 96 Calcium Total Bilirubin AST ALT Alkaline Phosphatase Total Protein Albumin Globulin Albumin/Globulin Ratio Triglycerides 236 H Cholesterol 211 H LDL Cholesterol, Calc 131 VLDL Cholesterol, Calc 47 HDL Cholesterol 33 Cholesterol/HDL Ratio 6 TSH Urine Color Urine Appearance Urine pH Ur Specific [place] Urine Protein Urine Glucose (UA) Urine Ketones Urine Blood Urine Nitrite Urine Bilirubin Urine Urobilinogen Ur Leukocyte Esterase POC Ur Test Salicylates Urine Opiates Screen Ur Methadone, Qual Acetaminophen Urine Barbiturates Lamotrigine 1.2 L Ur Phencyclidine (PCP) U Amphetamin/Meth Scrn MDMA (Ecstasy) Screen U Benzodiazepines Scrn Ur Cocaine Metabolite U Marijuana (THC) Screen Ethyl Alcohol mg/dL < 3.0 Hospital Course (1) Bipolar 2 disorder: 02/22 - Patient reports lamotrigine has been ineffective for bipolar depression (although has helped to stabilize mood), and has worsened headaches, which are daily and debilitating. She would like to discontinue it and switch to a different mood stabilizer which is reasonable: reviewed options including retrial of quetiapine, lurasidone, or lithium, or olanzapine (with fluoxetine) to target bipolar depression. Reviewed risks, benefits, and side effects of each. She wants to avoid weight gain d/t h/o problems with body image so declined olanzapine. She also wants to avoid sedation which was problematic with quetiapine, and ultimately agreed to a trial of lurasidone. Will start 20mg daily and monitor for side effects including vertigo and akathisia. She may require a slower titration due to her history of sensitivity to medication side effects. -Fasting lipid profile and glucose ordered for tomorrow morning for baseline on an atypical antipsychotic. -Patient reports she had gained a significant amount of weight on aripiprazole, and has lost 15 pounds over the past several months. Current BMI 28.7. Continue to provide information about importance of healthy diet and regular physical activity for healthy weight maintenance. -Continue fluoxetine 20 mg daily. -Coordinate care with outpatient psychiatrist and therapist. -Involve patient in groups and therapy, work on healthy coping skills and discharge safety plan. -Coordinate with the [facility]. -Family meeting with parents. 02/23 - Continue current medication regimen as above; reviewed option to taper topiramate given lurasidone has been added - patient reports desire to continue at 100mg as it is effective for "binge eating", even if ineffective for management of headaches and is not an ideal mood stabilization agent - Family meeting with mother scheduled for tomorrow afternoon - Fasting glucose and lipid panel reviewed with patient; triglycerides elevated at 235, total cholesterol elevated at 211 02/24 - Continue current medication regimen. Patient concerned headaches may be a side effect to medication adjustments. Reviewed expectation that the symptoms will improve as she remains on the medication. Patient encouraged to keep staff updated with physical concerns, though reviewed that there may be causes aside from medication reactions - Family meeting with mother scheduled for this afternoon, patient stating she is "excited" -Continue to encourage group and recreational programming, in order to develop healthy and effective coping strategies. 02/25 - Continue current medication regimen - Attempting to schedule aftercare appointments at home, as patient is considering deferring assignments and returning home for the remainder of the semester - Continue to encourage participation in group and recreational programming (2) Anxiety: 02/22 -continue SSRI as above. Offer hydroxyzine as needed for severe anxiety. Work on behavioral techniques for managing anxiety. (3) Headache: 02/22 -acetaminophen as needed for headaches.l -Continue topiramate for now, but consider tapering off as patient reports it has been ineffective for headaches and mood, and could be worsening functioning due to tendency to impair focus. 02/23 - Reporting worsened headache today; patient perceives due to medication changes - Admits topiramate is ineffective for headaches, but requests to continue medication as it has reportedly been helpful for over-eating tendencies ("binge eating") 02/24 - Continues to report headaches, worsened this morning but responded to acetaminophen Mental Health & Subst Abuse Tx Psychiatrist Name of Psychiatrist: LESLYE Dubois Psychiatrist's Date of Appointment with Psychiatrist: 03/30/19 Time of Appointment with Psychiatrist: 9:45 a.m. Psychiatric Appointment Comment: [address], [address], [place], [place] Psychiatrist Release of Information: Obtained, Reviewed and Signed Therapist Name of Therapist: NAI Yoder Therapist's Date of Therapist Appointment: 03/04/19 Time of Therapist Appointment: 11:00 a.m. Therapy Appointment Comment: [address], [address], [place] Therapist Release of Information: Obtained, Reviewed and Signed Chip Bin Conveyor Tender Name of Chip Bin Conveyor Tender: Essie Brennan Phone Number for Chip Bin Conveyor Tender: [phone] Date of Appointment with Chip Bin Conveyor Tender: 02/28/19 Time of Appointment with Chip Bin Conveyor Tender: 12 p.m. Case Management Appointment Comment: Please call Essie to discuss deferrals Post Discharge Appointments Primary Care Physician Name Of Family Doctor: [facility] Primary Care Time of Appointment with PCP: Please follow up during the school year as needed Provider Appointment Comment: [place] [address] Smoking Cessation Counseling Tobacco Cessation Medication Prescribed at Discharge: Not Applicable/Non-Smoker Other #1: Name of Aftercare Appointment: Nathan Samayoa Phone Number of Aftercare Appointment: [phone] Time of Aftercare Appointment: Please call to schedule for when you return to [employer] Aftercare Appointment Comment: [address] [facility], [place] Release of Information Aftercare Appointment: Obtained, Reviewed and Signed #2: Name of Aftercare Appointment: Dr. Tolbert Phone Number of Aftercare Appointment: [phone] Time of Aftercare Appointment: Please follow up to schedule your appt for when you return to [employer] Aftercare Appointment Comment: [address] [facility], [address] [place] [address] Release of Information Aftercare Appointment: Obtained, Reviewed and Signed Contact Information Discharge Discharge Address: [place] [address] Discharge Plan Discharge Items Patient Disposition: Home - Self-Care Reason For Visit: MOOD DISORDER, NOS Discharge Diagnosis: bipolar II disorder Activity: Resume your previous activity Non-emergency contact: Primary Care Provider, Psychiatrist and Therapist Call non-emergency contact if: you have any medication questions and your symptoms worsen Follow-up/Referrals: PCP,NO [Primary Care Provider] - Diet: Regular Addtl Attending Provider Instructions: SPECIAL CARE INSTRUCTIONS: 1. Follow through with your scheduled aftercare appointments. If unable to keep an appointment, please call to reschedule. 2. Take your medication only as prescribed. Medication should not be changed or stopped without the approval of your doctor. In the event of worsening symptoms or concerns about side effects, contact your doctor immediately. 3. Utilize new healthy coping skills, anger management skills, and stress management skills learned during your hospitalization. Journal feelings and process them with a support person. Identify stressors or situations that may result in relapse, deterioration or inappropriate behaviors and develop a plan to deal with those issues. 4. If your coping skills are ineffective and you are in crisis, contact your outpatient providers for direction. If unable to reach your providers, please call the CAN HELP LINE AT or go to the closest Emergency Room. 5. Avoid alcohol and un-prescribed drugs. 6. You have been provided with the Mental Health Advance Directives Pamphlet for your review. AFTERCARE APPOINTMENTS: * Please call your insurance company prior to your scheduled appointment to confirm your aftercare providers are covered. Take your insurance information to your appointments. WHO TO CALL AND WHEN: Medical Emergencies: For questions or emergencies related to your hospital stay, please contact the Inpatient Behavioral Health Unit at [phone]. A hotel general manager is on-call 13/10 for the Behavioral Health Unit for emergencies At any time you feel your situation is an emergency, you may also call 911 immediately. Your Doctors Instructions noted above were prepared by provider Rhina Rocha [place]. Pending Studies at Discharge: No Stand-Alone Forms: My inZair, Smoking Cessation, Suicide Prevention Resources Medications and DC Order Prescriptions: New Latuda 40 mg Tablet 20 mg PO QDD Qty: 30 RF: 0 Continued topiramate [Topamax] 100 mg Tablet 100 mg PO HS RF: 0 fluoxetine [Prozac] 20 mg Capsule 20 mg PO HS RF: 0 Discontinued lamotrigine [Lamictal] 25 mg Tablet 50 mg PO HS RF: 0 Discharge Orders: Discharge Order (Routine); Ordered 02/26/19 Ordered By: Rhina Rocha Admission Data Admit Date/Time: 02/22/19 01:21 Attending Provider: Majo Fernández Admit Provider: Marie Mcdonald Primary Care Provider: PCP,NO Other Interventions: Discharge Summary Assessment (RN) Last Done: 02/26/19 11:10 PSY Interdisciplinary Discharge Planning Last Done: 02/26/19 11:09 DC Date/Time DO NOT enter until pt leaves facility: 02/26/19 11:20 Coding Level of Care Code 57700 D/C day mgmt > 30 min Diagnoses Bipolar 2 disorder F31.81 Anxiety F41.9 Headache R51
== END 2019-02-26 11:20 | disposition home or self-care (01) | DRG 885 ==
LOC: ED 20:39 → 3S 02-22 01:21